=== PATIENT | male | born 1995 | race Two or more races ===

== ENCOUNTER 2025-05-17 16:53 | Emergency (ER) | payer OTHER ==
[~2025-05-17] VITALS: Ht 182.9 cm; Wt 89.9 kg
[2025-05-17 16:58] VITALS: BP 162/98; PULSE 90; RESP 16; TEMP 97.4; O2SAT 99
--- NOTE | 2025-05-17 17:59 | Physician Documentation ---
History of Present Illness ~ Chief Complaint: Ear Pain Stated Complaint: EAR INFECTION Time Seen by MD: 17:24 HPI Patient is a very pleasant 29-year-old male that presents to the emergency department for 2 weeks of ear pain to the right side. Patient reports drainage from that ear over the course of the last 2 weeks with reduction in that drainage over the last couple of days. Patient reports decreased hearing in the affected ear. Patient denies any fevers chills nausea vomiting or diarrhea at this time. Patient denies dizziness headache chest pain or shortness of breath. Patient also denies any traumatic injury to his ear. Other symptoms reported at this time. Medication Reconciliation Allergies: Coded Allergies: No Known Allergies (Unverified , 05/17/25) Review of Systems ROS As stated above in the HPI, otherwise all systems are reviewed and negative. Physical Exam Vital Signs: Temperature: 97.4, Source: Temporal, Heart Rate: 90, Respiratory Rate: 16, BP: 162/98, Pulse Oximetry: 99, Weight: 89.900 Oxygen Flow Rate: 0 Physical Exam VITALS: Reviewed and as above. GENERAL: Alert, no apparent distress. HEENT: Normocephalic, atraumatic, PERRL, EOMI, dry mucosa, no erythema, right ear drum demonstrates perforation with purulent drainage visible during examination. SKIN: Warm and dry, no rash NEURO: Oriented x4, No motor or sensory deficit PSYCH: Normal mood and affect, no agitation Progress Results/Orders Results/Orders Vital Signs 05/17/25 16:58 Temp 97.4 Pulse 90 Resp 16 B/P (MAP) 162/98 Pulse Ox 99 O2 Flow Rate 0 Medical Decision Making Additional information obtaine: other Findings Medical Decision-Making (MDM) Discharge Note Patient: 29-year-old male Presentation: Two weeks of right ear pain, purulent drainage, and reduced hearing. No fever, chills, nausea, vomiting, diarrhea, dizziness, headache, chest pain, shortness of breath, or trauma. Exam: Perforated right tympanic membrane with purulent drainage and reduced hearing. Assessment: Findings are consistent with chronic suppurative otitis media (CSOM), defined by persistent otorrhea through a tympanic membrane perforation for >2 weeks.[1- 3][9] The most common pathogens are Pseudomonas aeruginosa and Staphylococcus aureus. Management Plan: Topical antibiotic ear drops: Fluoroquinolone drops (ciprofloxacin or ofloxacin) are recommended as first-line therapy. These agents are FDA-approved for use in the middle ear and are preferred due to their efficacy and low risk of ototoxicity, especially in the setting of a non-intact tympanic membrane. Aminoglycoside-containing drops (e.g., neomycin, gentamicin) are contraindicated due to risk of ototoxicity with perforation. Duration: Typically 710 days. Oral antibiotics: Routine use of oral antibiotics is not supported by evidence for uncomplicated CSOM, as topical therapy is superior for resolution of otorrhea. Oral antibiotics (e.g., amoxicillin-clavulanate) may be considered if there are signs of systemic infection, extension beyond the ear, or failure of topical therapy. In this case, with no systemic symptoms, oral antibiotics are not strictly indicated. Adjuncts: Aural toileting (manual cleaning of ear canal) may enhance topical therapy effectiveness. Patient education on tragal pumping after drop administration to improve middle ear penetration. Discharge Medications: Ciprofloxacin 0.3% otic drops: 4 drops in affected ear twice daily for 710 days or Ofloxacin 0.3% otic drops: 5 drops in affected ear once or twice daily for 710 days No oral antibiotics prescribed at this time due to lack of systemic symptoms and evidence favoring topical therapy. Follow-up: Reassessment in 12 weeks or sooner if symptoms worsen or fail to improve. Referral to otolaryngology if persistent otorrhea, hearing loss, or complications. Rationale: Topical fluoroquinolones are the most effective and safest option for CSOM with tympanic membrane perforation. Oral antibiotics do not improve outcomes in the absence of systemic involvement. Ear Diff. Dx: Considerations: Include: Abrasion, Cerumen impaction, Foreign body, Otitis externa, Barotrauma, Otitis media, Perforation, Referred pain- dental, Referred pain-pharyngitis, Referred pain-sinusitis, Referred pain-TMJ syn., Tympanic Membrane Injury, Other Eye Diff. Dx: Considerations: Include: Chalazoin, Conjuctivits-allergic, Conjuctivitis-bacterial, Conjuctivits-chlamydial, Conjuctivitis-viral, Corneal abrasion, Corneal laceration, Corneal ulceration, Foreign body-conjuctiva, Foreign body-corneal, Foreign body-intraocular, Foreign body-lid, Glaucoma, Globe rupture, Hordeolum, Iritis, Orbital cellulitis, Periobital cellulitis, Retinal artery occulsion, Retinal vein occlusion, Rust ring, Subconjunctival hem, Ultraviolet keratitis, Uveitis, Vitreous hemorrhage, Other Nose Diff. Dx: Considerations: Include: Abrasion, Anterior nasal bleed, Avulsion, Contusion, Coagulopathy, Fracture-nasal bone, Fracture-septum, Hypertension, Laceration, Other, Posterior nasal bleed, Retained foreign body, Septal hematoma Tooth Diff. Dx: Considerations: Include: Alveolar fracture, Aveolar osteitis, ANUG, Facial cellulitis, Periapical abscess, Periodontal abscess, Post- extraction bleeding, Pulpitis, Trigeminal neuralgia, Tooth-avulsion, Tooth- eruption, Tooth-fracture, Tooth-subluxation, Other Throat Diff Dx: Considerations: Include: AIDS, Epiglottitis, Esophageal candidiasis, Hand foot mouth disease, Herpangina, Herpetic stomatitis, Herpes simplex, Infection mononucleosis, Immunodeficiency, Gary's angina, Peritonsillar abscess, Peritonsillar cellulitis, Pharyngitis-diphtheria, Pharyngitis-strepococcal, Pharyngitis-viral, Thrush, URI, Other Departure Disposition: 01 HOME / SELF CARE / HOMELESS Impression: Primary Impression: Chronic otitis media of right ear Additional Impressions: Perforated tympanic membrane Acute otitis media of right ear with perforated tympanic membrane Condition: Stable Discharge Instructions: Otitis Media, Adult, Earache, Adult Additional Instructions: You are being treated for a right ear infection with a perforated eardrum (hole in the eardrum), which has caused pain, drainage, and reduced hearing. You will use both ear drops and oral antibiotics to help clear the infection and prevent complications. Medications: Ofloxacin 0.3% ear drops: Instill 10 drops into the right ear twice daily for 14 days. Warm the bottle in your hand for 1-2 minutes before use to avoid dizziness. Lie down with the affected ear facing up, put in the drops, and gently press the small bump in front of your ear (the tragus) 4 times to help the medicine reach the middle ear. Stay in this position for 5 minutes after putting in the drops. Amoxicillin-clavulanate 875 mg tablet: Take one tablet by mouth twice daily for 10 days, with food to reduce stomach upset. What to Expect: Most people start to feel better within a few days, but it is important to finish all your medicine even if symptoms improve. You may notice less drainage and pain as the infection clears. Follow-Up: Schedule a follow-up appointment with your primary care provider after finishing your medications, or sooner if you have any concerns. When to Return to the Emergency Department: If your ear pain, drainage, or hearing loss gets worse If you develop fever, chills, severe headache, dizziness, facial weakness, or swelling around the ear If you have any new symptoms that worry you Other Instructions: Keep your ear dry. Avoid swimming or getting water in the ear while using drops. Do not insert cotton swabs or other objects into your ear. If you miss a dose of your medicine, take it as soon as you remember. If it is almost time for your next dose, skip the missed dosedo not double up. If you have any questions about your medications or symptoms, contact your doctor or pharmacist. Wishing you a speedy recovery! Referrals: NO PRIMARY CARE PROVIDER (PCP) Prescriptions Ofloxacin (Ofloxacin) 0.3 % Drops 5 DROP RIGHT EAR Q12H for 10 Days, #5 ML 0 Refills Prov: JARAD MCARTHUR 05/17/25 Amox Tr/Potassium Clavulanate 875/125 MG (Augmentin 875/125 MG) 875 Mg-125 Mg Tablet 1 TAB PO Q12H for 10 Days, #20 TAB Prov: JARAD MCARTHUR 05/17/25 Education Educated: Patient Educated regarding: diagnosis, treatment, need for follow up Signature Scribe Signature: A Attestation: Scribed for Jarad Mcarthur by SAMANTHA Yu . 05/17/25 18:02 JARAD MCARTHUR May 17, 2025 17:59
[2025-05-17] MEDS ORDERED: OFLO5DRO5 RIGHT EAR (18:02)
[2025-05-17] MEDS ORDERED: AMOX-580 PO (18:02)
== END 2025-05-17 18:44 | disposition home or self-care (01) ==
LOC: ER 16:54
DX: H66.91 Otitis media, unspecified, right ear (principal); H72.91 Unspecified perforation of tympanic membrane, right ear
CPT/HCPCS: 99283